=== PATIENT | female | born 1970 | race African-American/Black ===

== ENCOUNTER 2017-05-07 11:57 | Emergency (ER) | payer OTHER, MEDICARE ==
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
== END 2017-05-07 14:20 | disposition home or self-care (01) ==
LOC: CED 11:57 → CFTX 11:57
DX: S39.012A Strain of muscle, fascia and tendon of lower back, initial encounter (principal); S40.012A Contusion of left shoulder, initial encounter; I10 Essential (primary) hypertension; E78.00 Pure hypercholesterolemia, unspecified; F41.9 Anxiety disorder, unspecified; F17.210 Nicotine dependence, cigarettes, uncomplicated; V43.52XA Car driver injured in collision with other type car in traffic accident, initial encounter
CPT/HCPCS: 72100; 73000; 99284